=== PATIENT | female | born 1990 | race Two or more races ===

== ENCOUNTER 2024-02-16 17:02 | Emergency (ER) | payer OTHER ==
[~2024-02-16] VITALS: Ht 157.5 cm; Wt 99.8 kg
[2024-02-16] MEDS ORDERED: diphenhydrAMINE HCL 50 MG/ML VIAL ONE (17:29)
[2024-02-16] MEDS ORDERED: METOCLOPRAMIDE HCL 10 MG/2 ML VIAL ONE (17:29)
[2024-02-16] MEDS ORDERED: SUMATRIPTAN SUCCINATE 6 MG/0.5 ML VIAL SQ ONE (17:30)
[2024-02-16] MEDS ORDERED: KETOROLAC TROMETHAMINE INJ 30 MG/ML VIAL ONE (17:40)
[2024-02-16] MEDS: SUMATRIPTAN SUCCINATE 6 MG/0.5 ML VIAL SQ ONE (17:41)
[2024-02-16] MEDS: diphenhydrAMINE HCL 50 MG/ML VIAL IV ONE (17:41)
[2024-02-16] MEDS: IV NS 0.9% 1,000 ML BAG IV ONE (17:41)
[2024-02-16] MEDS: METOCLOPRAMIDE HCL 10 MG/2 ML VIAL IV ONE (17:42)
[2024-02-16] MEDS: KETOROLAC TROMETHAMINE INJ 30 MG/ML VIAL IV ONE (17:45)
[2024-02-16] MEDS ORDERED: METO-295 PO (18:39)
[2024-02-16] MEDS ORDERED: KETO10TA2 PO (18:39)
[2024-02-16] MEDS ORDERED: SUMA100T PO (18:39)
[2024-02-16 18:45] VITALS: BP 161/118; TEMP 98.2; O2SAT 98
== END 2024-02-16 19:25 | disposition home or self-care (01) ==
LOC: ER 17:05
DX: G43.909 Migraine, unspecified, not intractable, without status migrainosus (principal); I10 Essential (primary) hypertension
CPT/HCPCS: 99284; 96374; 96375; 96361; 96372; J1200; J3030; J2765; J1885; J7030